=== PATIENT | male | born 1995 | race Caucasian/White ===

== ENCOUNTER 2024-06-14 17:57 | Emergency (ER) | payer OTHER ==
[~2024-06-14] VITALS: Ht 170.2 cm; Wt 74.8 kg
[~2024-06-14 17:57] MED LIST: AMOX250 PO; AMOX500 PO; Benadryl 50 mg50 MG PO; CODACEE120 PO; CYCL10 PO; Cleocin HCl300 MG PO; HYDACE5 PO; IBUP600 PO; Loperamide2 MG PO; METPRE4DP PO; NAPR500 PO; NEOBACHC15 TOP; Norco 5-325 Ta1 EACH PO; PRED10 PO; PROM25 PO; PSEHYDGUAL PO; Pepcid40 MG PO; RXANTBENOT AU; Silvadene20 GM TOP
[2024-06-14 18:36] VITALS: BP 124/102
== END 2024-06-14 18:38 | disposition left against medical advice (07) ==
LOC: ER 17:57
DX: S00.81XA Abrasion of other part of head, initial encounter (principal); R07.89 Other chest pain; V89.2XXA Person injured in unspecified motor-vehicle accident, traffic, initial encounter; F17.210 Nicotine dependence, cigarettes, uncomplicated; Z79.899 Other long term (current) drug therapy; Z53.21 Procedure and treatment not carried out due to patient leaving prior to being seen by health care provider
CPT/HCPCS: 99284